=== PATIENT | female | born 1995 | race Two or more races ===

== ENCOUNTER 2018-07-06 09:25 | Emergency (ER) | payer OTHER ==
[~2018-07-06] VITALS: Ht 170.2 cm; Wt 72.6 kg
[2018-07-06] MEDS ORDERED: LORAZEPAM 2 MG/1 ML VIAL IM ONE (10:00)
[2018-07-06] MEDS ORDERED: diphenhydrAMINE 50 MG/1 ML VIAL IM ONE (10:00)
[2018-07-06] MEDS ORDERED: OLANZAPINE 5 MG TABLET PO ONE (10:00)
--- NOTE | 2018-07-06 10:00 | NUR ---
Pt c/o anxity.Seen,examined by .Will continue to monitor.
[2018-07-06] MEDS ORDERED: diphenhydrAMINE 50 MG/1 ML VIAL ONE (10:13)
[2018-07-06] MEDS ORDERED: LORAZEPAM 2 MG/1 ML VIAL ONE (10:13)
[2018-07-06] MEDS ORDERED: OLANZAPINE 5 MG TABLET ONE (10:14)
[2018-07-06 10:36] LABS: BASOPHILS # (AUTO) 0.1 K/uL (0.0-8.0); BASOPHILS % (AUTO) 0.8 % (0.0-2.0); EOSINOPHILS # (AUTO) 0.2 K/uL (0.0-0.7); EOSINOPHILS % (AUTO) 3.2 % (0.0-7.0); HEMATOCRIT 38.6 % (31.2-41.9); HEMOGLOBIN 13.2 g/dL (10.9-14.3); LYMPHOCYTES % (AUTO) 26.3 % (20.5-51.5); MEAN CORPUSCULAR HEMOGLOBIN 31.9 uug (24.7-32.8); MEAN CORPUSCULAR HGB CONC 34 g/dL (32.3-35.6); MEAN CORPUSCULAR VOLUME 93.2 fL (75.5-95.3); MONOCYTES # (AUTO) 0.7 K/uL (2.0-10.0); MONOCYTES % (AUTO) 9.6 % (0.0-11.0); NEUTROPHILS # (AUTO) 4.5 K/uL (1.8-8.9); NEUTROPHILS % (AUTO) 60.1 % (38.5-71.5); PLATELET COUNT (AUTO) 218 K/uL (179-408); RED BLOOD CELL COUNT(AUTO) 4.14 MIL/uL (3.63-4.92); WHITE BLOOD COUNT (AUTO) 7.5 K/uL (3.8-11.8)
[2018-07-06 10:46] LABS: CARBON DIOXIDE 23 mmol/L (21-32); CHLORIDE 108 mmol/L (98-107); CREATININE 0.5 mg/dL (0.6-1.3); GLUCOSE 84 mg/dL (74-106); POTASSIUM 3.8 mmol/L (3.5-5.1); UREA NITROGEN, BLOOD 5 mg/dL (7-18)
[2018-07-06 10:48] LABS: ETHANOL 139 MG/DL (0-0)
--- NOTE | 2018-07-06 10:49 | NUR ---
Pt appears to be more comfortable,sleeping.Will continue t monitor.
[2018-07-06 10:51] LABS: ACETAMINOPHEN < 2.0 ug/mL (10-30); ALANINE AMINOTRANSFERASE 44 U/L (14-59); ALKALINE PHOSPHATASE 68 U/L (50-136); ASPARTATE AMINOTRANSFERASE 38 U/L (15-37); BILIRUBIN,DIRECT 0.1 mg/dL (0.0-0.2); BILIRUBIN,TOTAL 0.2 mg/dL (0.2-1.0); TOTAL PROTEIN, SERUM 7.6 g/dL (6.4-8.2)
[2018-07-06 10:58] LABS: THYROID STIMULATING HORMONE 0.473 mIU/mL (0.358-3.740)
--- NOTE | 2018-07-06 12:21 | NUR ---
Patient appears comfortable ,sleeping.Will continue to monitor.
--- NOTE | 2018-07-06 13:54 | NUR ---
Pt was seen,examined by crisis team.
--- NOTE | 2018-07-06 14:31 | NUR ---
Pt was discharge in stable condition.Discharge instruction given to pt mother.Verbalized understanding.
[2018-07-06 14:32] VITALS: BP 118/83
== END 2018-07-06 14:34 | disposition home or self-care (01) ==
LOC: ER 09:26
DX: F29 Unspecified psychosis not due to a substance or known physiological condition (principal); F32.9 Major depressive disorder, single episode, unspecified; F10.10 Alcohol abuse, uncomplicated
CPT/HCPCS: 71045; 84443; 84703; 85025; 93005; A4663; G0480; G0480-TC; J1200; J2060